=== PATIENT | male | born 1995 | race Caucasian/White ===

== ENCOUNTER 2018-02-24 16:52 | Emergency (ER) | payer OTHER ==
--- NOTE | 2018-02-24 17:39 | RAD ---
INDICATION: LEFT elbow pain post fall. COMPARISON: No relevant prior exams available on the [facility] for comparison. TECHNIQUE: AP, lateral, and oblique views LEFT elbow. REPORT: Suggestion of mild displacement of the anterior fat pad indicating a small joint effusion. No definitive fracture evident. Normal articular alignment. Mild dorsal soft tissue swelling. IMPRESSION: Small joint effusion. No definitive conspicuous fracture. An occult fracture, most commonly at the radial head in an adult, is not excluded.
[2018-02-24] MEDS ORDERED: Ibuprofen TAB* 800 MG PO ONE (18:17)
[2018-02-24 18:49] VITALS: BP 118/71
--- NOTE | 2018-02-25 07:43 | ED ---
Junior Bey Jennifer, scribed for Basim Morris MD on 02/24/18 at 1806 . Upper Extremity Pain - HPI Summary HPI Summary: The patient is a 22 year old male who presents with left elbow pain after falling on it while playing basketball two days ago. He denies any other injury and denies any LOC. - History of Current Complaint Chief Complaint: EDExtremityUpper Stated Complaint: LT ELBOW INJURY Time Seen by Provider: 02/24/18 18:00 Hx Obtained From: Patient Mechanism Of Injury: Fall From A Standing Position - while playing basketball Onset/Duration: Started Days Ago - 2 days, Still Present Timing: Constant Severity Initially: Moderate Severity Currently: Moderate Pain Location: Elbow - left Aggravating Factor(s): Movement Alleviating Factor(s): Nothing Associated Signs & Symptoms: Positive: Other - left elbow pain, headache, head bruise - Allergies/Home Medications Allergies/Adverse Reactions: Allergies Allergy/AdvReac Type Severity Reaction Status Date / Time No Known Allergies Allergy Verified 02/24/18 16:57 PMH/Surg Hx/FS Hx/Imm Hx Endocrine/Hematology History: Denies: Hx Diabetes Cardiovascular History: Denies: Hx Hypertension Infectious Disease History: No Infectious Disease History: Denies: Traveled Outside the [place] in Last 30 Days - Family History Known Family History: Negative: Renal Disease - Social History Occupation: Unemployed Smoking Status (MU): Unknown if Ever Smoked Review of Systems Positive: Myalgia - left elbow pain Positive: Bruising - head Positive: Headache All Other Systems Reviewed And Are Negative: Yes Physical Exam - Summary Physical Exam Summary: GENERAL: ~Patient is a well developed and nourished M who is lying comfortable in the stretcher. ~Patient is not in any acute respiratory distress. HEAD AND FACE: Normocephalic EYES: PERRLA, EOMI x 2. EARS: Hearing grossly intact. MOUTH: Oropharynx within normal limits. NECK: Supple, trachea is midline, no adenopathy, no JVD, no carotid bruit. CHEST: Symmetric, no tenderness at palpation LUNGS: Clear to auscultation bilaterally. No wheezing or crackles. CVS: Regular rate and rhythm, S1 and S2 present, no murmurs or gallops appreciated. ABDOMEN: Soft, non-tender. Bowel sounds are normal. No abdominal abnormal pulsations. EXTREMITIES: Posterior elbow tender to palpation, no edema, no cyanosis or clubbing. NEURO: Alert and oriented x 3. No acute neurological deficits. Speech is normal and follows commands. SKIN: Dry and warm Triage Information Reviewed: Yes Vital Signs On Initial Exam: Initial Vitals Temp Pulse Resp BP Pulse Ox 99.1 F 96 14 123/68 98 02/24/18 16:56 02/24/18 16:56 02/24/18 16:56 02/24/18 16:56 02/24/18 16:56 Vital Signs Reviewed: Yes Procedures - Splinting Hand-Made Type: fiberglass Splint: Posterior long arm Pre-Proc Neuro Vasc Exam: normal Post-Proc Neuro Vasc Exam: normal Diagnostics - Vital Signs Vital Signs Temp Pulse Resp BP Pulse Ox 02/24/18 16:56 99.1 F 96 14 123/68 98 - Laboratory Lab Statement: Any lab studies that have been ordered have been reviewed, and results considered in the medical decision making process. - Radiology Elbow XR Xray Interpretation: No Acute Changes - Small joint effusion. No definitive conspicuous fracture. An occult fracture, most commonly at the radial head in an adult, is not excluded. Dr. Morris has reviewed this report. Radiology Interpretation Completed By: Radiologist Course/Dx - Course Course Of Treatment: The patient is a 22 year old male who presents with left elbow pain after falling on it while playing basketball two days ago. In the ED course patient's elbow was immobilized in a posterior long arm splint without complications and remained neurovasucularly intact post-splinting. The patient is diagnosed with elbow injury and instructed to follow up with orthopedics. - Diagnoses Provider Diagnoses: Elbow injury Discharge - Sign-Out/Discharge Documenting (check all that apply): Discharge/Admit/Transfer - Discharge Plan Condition: Stable Disposition: HOME Prescriptions: Ibuprofen TAB* [Motrin TAB* 800 MG] 800 mg PO TID #24 tab Patient Education Materials: Splint Care (ED), Elbow Sprain (ED) Referrals: Michael Agrawal MD [Medical Doctor] - Additional Instructions: Follow up with Dr. Agrawal, orthopedics, in 3 days. Return to the emergency department for any new or worsening symptoms. - Billing Disposition and Condition Condition: STABLE Disposition: HOME The documentation as recorded by the Junior fair Jennifer accurately reflects the service I personally performed and the decisions made by Arturo ontiveros Tudie-Ann, MD.
== END 2018-02-24 18:47 | disposition home or self-care (01) ==
LOC: ED 16:52
DX: S59.902A Unspecified injury of left elbow, initial encounter (principal); S00.93XA Contusion of unspecified part of head, initial encounter; W18.30XA Fall on same level, unspecified, initial encounter; Y93.67 Activity, basketball; Y92.310 Basketball court as the place of occurrence of the external cause
CPT/HCPCS: 99282; A9270-GY